=== PATIENT | female | born 1950 | race Two or more races ===

== ENCOUNTER → 2017-07-29 | Outpatient (CLI) | payer OTHER | END | disposition home or self-care (01) | LOC: MRI 09:35 | DX: K83.8 Other specified diseases of biliary tract (principal) | CPT/HCPCS: 74181 ==

== ENCOUNTER → 2017-08-14 | Outpatient (CLI) | payer OTHER | END | disposition home or self-care (01) | LOC: NUCLEAR 08:09 | DX: I25.10 Atherosclerotic heart disease of native coronary artery without angina pectoris (principal); M79.605 Pain in left leg; M79.604 Pain in right leg | CPT/HCPCS: 78452; 93017; 93970; A9500; J0153 ==